=== PATIENT | female | born 1970 | race African-American/Black ===

== ENCOUNTER → 2017-10-26 | Outpatient (CLI) | payer BC, OTHER ==
[~2017-10-26] MED LIST: CYCLOBENZAPRINE5 MG PO; IBUPROFEN 600600 M1 PO
== END ==
LOC: RAD 07:45
DX: Z12.31 Encounter for screening mammogram for malignant neoplasm of breast (principal)

== ENCOUNTER 2018-08-16 11:32 | Emergency (ER) | payer BC, OTHER ==
[~2018-08-16] VITALS: Ht 170.2 cm; Wt 77.1 kg
[2018-08-16 12:10] LABS: URINE BILIRUBIN NEGATIVE (Negative); URINE BLOOD 3+ (Negative); URINE CLARITY CLEAR; URINE COLOR YELLOW; URINE GLUCOSE-RANDOM* NEGATIVE (Negative); URINE KETONES 1+ (Negative); URINE LEUKOCYTES NEGATIVE (Negative); URINE NITRITE NEGATIVE (Negative); URINE PROTEIN (DIPSTICK) TRACE (Negative)
[2018-08-16 12:17] LABS: SQUAMOUS >10 Many /LPF (0-3)
[2018-08-16 12:18] LABS: MUCUS 0-3 Light strn/LPF (None Seen); URINE WBC 0-5 Rare /HPF (0-5)
[2018-08-16 12:19] LABS: CASTS None Seen /LPF (None Seen); CRYSTALS None Seen /LPF (None Seen)
[2018-08-16] MEDS ORDERED: VENTOLIN HFA 1818 GM INH (13:03)
[2018-08-16] MEDS ORDERED: TESSALON PERLE100 MG PO (13:03)
[2018-08-16] MEDS ORDERED: IBUPROFEN 600600 M1 PO (13:03)
[2018-08-16 13:21] VITALS: BP 120/70
== END 2018-08-16 13:22 | disposition home or self-care (01) ==
LOC: ER 11:32
PROVIDERS: Emergency Medicine
DX: J09.X2 Influenza due to identified novel influenza A virus with other respiratory manifestations (principal); G89.29 Other chronic pain; M25.512 Pain in left shoulder

== ENCOUNTER → 2018-09-23 | Outpatient (CLI) | payer BC, OTHER ==
[~2018-09-23] MED LIST changes: +TESSALON PERLE100 MG PO; +VENTOLIN HFA 1818 GM INH
== END ==
LOC: ULTRA 08:54
DX: D25.9 Leiomyoma of uterus, unspecified (principal)

== ENCOUNTER → 2018-12-13 | Outpatient (CLI) | payer BC, OTHER | LOC: RAD 09:25 | DX: Z12.31 Encounter for screening mammogram for malignant neoplasm of breast (principal) ==

== ENCOUNTER 2019-05-26 21:59 | Emergency (ER) | payer BC, OTHER ==
[~2019-05-26] VITALS: Ht 172.7 cm; Wt 78.0 kg
[2019-05-26 22:24] LABS: URINE BILIRUBIN NEGATIVE (Negative); URINE BLOOD 1+ (Negative); URINE CLARITY CLEAR; URINE COLOR YELLOW; URINE GLUCOSE-RANDOM* NEGATIVE (Negative); URINE KETONES TRACE (Negative); URINE LEUKOCYTES-REFLEX NEGATIVE (Negative); URINE NITRITE-REFLEX NEGATIVE (Negative); URINE PROTEIN (DIPSTICK) NEGATIVE (Negative); URINE UROBILINOGEN 0.2 E.U./dl (0.2-1.0)
[2019-05-26 22:32] LABS: AMP/METHAMP Negative (Negative); BARBITURATES Negative (Negative); BENZODIAZEPINES Negative (Negative); COCAINE Negative (Negative); METHADONE Negative (Negative); OPIATES POSITIVE (Negative); PCP Negative (Negative)
[2019-05-26 22:34] LABS: BACTERIA-REFLEX 1-9 Few /HPF (None Seen); CASTS None Seen /LPF (None Seen); CRYSTALS None Seen /LPF (None Seen); MUCUS None Seen strn/LPF (None Seen); SQUAMOUS >10 Many /LPF (0-3); URINE RBC 0-2 Rare /HPF (0-2); URINE WBC-REFLEX None Seen /HPF (0-5)
[2019-05-26 22:43] LABS: HEMATOCRIT 37.9 % (37.0-47.0); HEMOGLOBIN 12.9 gm/dL (12.0-15.0); MCH 32.6 pg (26.0-34.0); MCHC 34.2 g/dL (28.0-37.0); MCV 95.5 fL (80.0-100.0); PLATELET COUNT 308 thou/uL (150-400); RBC 3.97 mil/uL (4.20-5.00); RDW 13.5 % (10.5-14.5); WBC 6.7 thou/uL (4.0-11.0)
[2019-05-26 22:49] LABS: CALCIUM 9.4 mg/dL (8.5-10.1); POTASSIUM 3.1 mmol/L (3.5-5.1)
[2019-05-26 22:55] LABS: SALICYLATE < 2.8 mg/dL (2.8-20.0)
[2019-05-26] MEDS ORDERED: HYDROCODONE-IB1 EAC3 PO (23:36)
[2019-05-26 23:41] LABS: ABSOLUTE NEUTROPHILS 4.1 thou/uL (1.4-8.2)
[2019-05-27 15:45] VITALS: BP 101/59
--- NOTE | 2019-05-28 13:11 | EKG ---
[place] [address] [address] [place] [place] [address] ELECTROCARDIOGRAM REPORT Name: JAGRUTI POLANCO Room #: DEP [id number] Admission: 05/26/19 Attend Phys: Discharge: 05/27/19 Date of : 70 Report #: [id number] THIS REPORT FOR: //name// [facility] ED Test Date: 2019-05-26 Test Time: 22:23:32 Pat Name: JAGRUTI POLANCO Department: Room: Gender: F [employer]: [place] : 1970 Requested By: Fredy Gonsalez Order Number: [id number] MD: Andrew Jackman Measurements Intervals [place] Rate: 113 P: 43 RI: 173 QRS: 29 QRSD: 81 T: 44 QT: 324 QTc: 445 Interpretive Statements Sinus tachycardia Abnormal R-wave progression, early transition Nonspecific ST and T wave abnormality No previous ECG available for comparison Electronically Signed On 05-28-2019 13:11:19 [employer] by Andrew Jackman [email or web address] <ELECTRONICALLY SIGNED> By: Andrew Jackman MD, [facility] 05/28/19 1311 2223 [id number] Andrew Jackman MD, FACC /EPI
== END 2019-05-27 15:47 ==
LOC: ER 21:59
PROVIDERS: Emergency Medicine
DX: T40.2X2A Poisoning by other opioids, intentional self-harm, initial encounter (principal); R45.851 Suicidal ideations; M25.512 Pain in left shoulder; G89.29 Other chronic pain; Y92.89 Other specified places as the place of occurrence of the external cause